=== PATIENT | male | born 1950 | race Asian ===

== ENCOUNTER 2016-08-04 13:59 | Outpatient (CLI) | payer MEDICARE ==
--- NOTE | 2016-08-04 14:29 | XRay Report ---
Chest 2 views: History: Wheezing. Findings: Normal cardiomediastinal silhouette. Trachea is midline. No consolidation, pneumothorax or pleural effusion. Impression: No acute cardiopulmonary findings.
== END 2016-08-04 14:00 | disposition home or self-care (01) ==
LOC: SPVIMAG 13:59
PROVIDERS: ATTEND Internal Medicine
DX: R06.2 Wheezing (principal)
CPT/HCPCS: 71020